=== PATIENT | male | born 1990 | race Two or more races ===

== ENCOUNTER 2017-08-01 18:20 | Emergency (ER) | payer OTHER ==
[~2017-08-01] VITALS: Ht 190.5 cm; Wt 77.6 kg
[2017-08-01] MEDS ORDERED: LIDOCAINE 1%, 20ML ONE (19:00)
[2017-08-01] MEDS ORDERED: DIPH,PERTUSS(ACELL),TET VAC/PF 0.5 ML IM-VACC ONE ×2 (19:00→20:08)
[2017-08-01] MEDS ORDERED: LIDOCAINE 1%, 20ML SQ ONE (19:00)
[2017-08-01] MEDS ORDERED: PLEASE ENTER ALLERGIES MC SCH ×2 (19:00)
[2017-08-01 19:17] VITALS: BP 124/74
== END 2017-08-01 20:22 | disposition home or self-care (01) ==
LOC: EDBD → ED 20:20
DX: S31.801A Laceration without foreign body of unspecified buttock, initial encounter (principal); G89.11 Acute pain due to trauma; W18.30XA Fall on same level, unspecified, initial encounter; Y93.E1 Activity, personal bathing and showering; Y92.89 Other specified places as the place of occurrence of the external cause; Y99.8 Other external cause status
CPT/HCPCS: 12002; 90471; 90715

== ENCOUNTER 2017-08-05 13:29 | Emergency (ER) | payer OTHER ==
[~2017-08-05] VITALS: Ht 190.5 cm; Wt 78.1 kg
[2017-08-05 13:31] VITALS: BP 138/78
== END 2017-08-05 14:31 | disposition home or self-care (01) ==
LOC: ED 14:04 → EDBD 14:04 → ED 14:31
DX: S31.821D Laceration without foreign body of left buttock, subsequent encounter (principal); X58.XXXD Exposure to other specified factors, subsequent encounter
CPT/HCPCS: 99283

== ENCOUNTER 2017-08-11 17:00 | Emergency (ER) | payer OTHER ==
[~2017-08-11] VITALS: Ht 190.5 cm; Wt 76.0 kg
[2017-08-11 17:12] VITALS: BP 128/93
== END 2017-08-11 18:35 | disposition home or self-care (01) ==
LOC: ED 18:15
DX: S31.821D Laceration without foreign body of left buttock, subsequent encounter (principal); X58.XXXD Exposure to other specified factors, subsequent encounter
CPT/HCPCS: 99283